=== PATIENT | female | born 1945 | race Caucasian/White ===

== ENCOUNTER → 2017-04-27 | Outpatient (CLI) | payer OTHER ==
--- NOTE | ~2017-04-27 | EKG ---
[facility] [address] [place] [address] ELECTROCARDIOGRAM REPORT Name: NIKKOBETZAIDA OLEARY Room #: REG PURNIMA John#: [id number] Admission: 04/27/17 Attend Phys: Madelaine Park MD Discharge: Date of : 47 Report #: [id number] THIS REPORT FOR: //name// [facility] Test Date: 2017-04-27 Test Time: 13:58:11 Pat Name: BETZAIDA EL Department: Room: Gender: F Answering Service Operator: Berenice VILLEGAS : 1945 Requested By: Madelaine Park Order Number: [id number] MD: Measurements Intervals [place] Rate: 84 P: 78 NC: 160 QRS: 39 QRSD: 77 T: 61 QT: 352 QTc: 417 Interpretive Statements Sinus rhythm No previous ECG available for comparison [email or web address] By: [id number] Janki Shearer MD /EPI
== END ==
LOC: CV 13:39
DX: Z01.818 Encounter for other preprocedural examination (principal)